=== PATIENT | female | born 1995 | race Caucasian/White ===

== ENCOUNTER 2018-08-06 19:26 | Emergency (ER) | payer SELFPAY ==
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
--- NOTE | 2018-08-06 20:18 | RADIOLOGY REPORT (SQ) ---
EXAM DESCRIPTION: HAND RIGHT 3 VIEWS COMPLETED DATE/TIME: 08/06/2018 7:50 pm REASON FOR STUDY: pain after punching a wall COMPARISON: None. EXAM PARAMETERS: NUMBER OF VIEWS: Three views. TECHNIQUE: AP, lateral and oblique radiographic images acquired of the right hand. LIMITATIONS: None. FINDINGS: MINERALIZATION: Normal. BONES: No acute fracture or dislocation. No worrisome bone lesions. JOINTS: No effusion. SOFT TISSUES: No significant soft tissue swelling. No radiopaque foreign body. OTHER: No other significant finding. IMPRESSION: NO FRACTURE. TECHNICAL DOCUMENTATION: JOB ID: [id number] [place]-72 2010 [employer]- All Rights Reserved Reading location - IP/workstation name: [facility]
[2018-08-06 20:30] VITALS: BP 116/75
== END 2018-08-06 20:30 | disposition home or self-care (01) ==
LOC: ER 19:26
DX: S60.511A Abrasion of right hand, initial encounter (principal); W22.09XA Striking against other stationary object, initial encounter
CPT/HCPCS: 99283

== ENCOUNTER 2018-08-29 21:45 | Emergency (ER) | payer SELFPAY ==
[2018-08-29 23:48] LABS: ABSOLUTE BASOPHILS # (AUTO) 0.1 10^3/uL (0.0-0.2); ABSOLUTE EOSINOPHILS # (AUTO) 0.3 10^3/uL (0.0-0.6); ABSOLUTE LYMPHOCYTES (AUTO) 2.4 10^3/uL (0.5-4.7); ABSOLUTE MONOCYTES (AUTO) 1.1 10^3/uL (0.1-1.4); ABSOLUTE NEUT (AUTO) 7.9 10^3/uL (1.7-8.2); BASOPHILS % (AUTO) 0.7 % (0-2); EOSINOPHILS % (AUTO) 2.4 % (0-6); HEMATOCRIT 41.4 % (36.0-47.0); HEMOGLOBIN 14.4 g/dL (12.0-15.5); LYMPHOCYTES % (AUTO) 20.6 % (13-45); MEAN CORPUSCULAR HEMOGLOBIN 33.9 pg (27.0-33.4); MEAN CORPUSCULAR HGB CONC 34.7 g/dL (32.0-36.0); MEAN CORPUSCULAR VOLUME 98 fl (80-97); MONOCYTES % (AUTO) 9.4 % (3-13); PLATELET COUNT 239 10^3/uL (150-450); RED BLOOD COUNT 4.25 10^6/uL (3.72-5.28); RED CELL DISTRIBUTION WIDTH 12.2 % (11.5-14.0); SEGMENTED NEUTROPHILS % (AUTO) 66.9 % (42-78); TOTAL CELLS COUNTED % (AUTO) 100 %; WHITE BLOOD COUNT 11.8 10^3/uL (4.0-10.5)
[2018-08-30 00:25] LABS: APPEARANCE,URINE SLIGHTLY-CLOUDY; BILIRUBIN,URINE NEGATIVE (NEGATIVE); COLOR,URINE YELLOW; GLUCOSE, URINE NEGATIVE (NEGATIVE); KETONES,URINE NEGATIVE (NEGATIVE); LEUKOCYTE ESTERASE,URINE NEGATIVE (NEGATIVE); NITRITE,URINE NEGATIVE (NEGATIVE); PROTEIN,URINE NEGATIVE (NEGATIVE)
[2018-08-30 01:09] LABS: ALANINE AMINOTRANSFERASE 21 U/L (9-52); ALBUMIN 4.2 g/dL (3.5-5.0); ALKALINE PHOSPHATASE 54 U/L (38-126); ANION GAP 12 (5-19); ASPARTATE AMINO TRANSFERASE 19 U/L (14-36); BILIRUBIN,DIRECT 0.2 mg/dL (0.0-0.4); BILIRUBIN,TOTAL 0.4 mg/dL (0.2-1.3); BLOOD UREA NITROGEN 8 mg/dL (7-20); CALCIUM 9.7 mg/dL (8.4-10.2); CARBON DIOXIDE 26 mmol/L (22-30); CHLORIDE 103 mmol/L (98-107); GLUCOSE 95 mg/dL (75-110); LIPASE 99.6 U/L (23-300); POTASSIUM 4.6 mmol/L (3.6-5.0); SODIUM 140.6 mmol/L (137-145); TOTAL PROTEIN 6.8 g/dL (6.3-8.2)
[2018-08-30] MEDS ORDERED: MORPHINE SULFATE 10 MG/ML INJ IV ONE (01:15)
[2018-08-30] MEDS ORDERED: ONDANSETRON HCL INJ/PF 4 MG/2 ML SDV IV ONE (01:15)
[2018-08-30] MEDS ORDERED: NORMAL SALINE 1000 ML 1,000 ML IV ONE (01:16)
--- NOTE | 2018-08-30 01:20 | ER Document Report ---
ED GI/ - General Chief Complaint: Abdominal Pain Stated Complaint: RIGHT ABDOMINAL PAINS Time Seen by Provider: 08/29/18 23:51 Notes: Patient is a 22-year-old female presenting to the emergency department complaining of right lower quadrant abdominal pain started at 1600 hrs. this afternoon. Patient denies any vomiting, diarrhea, fever, URI symptoms, vaginal discharge. Patient does admit to some dysuria. Past medical history: None Medications: None Allergies: Sulfa Surgical history: None Patient denies illicit drug use, EtOH use, admits to cigarette smoking. TRAVEL OUTSIDE OF THE [place] IN LAST 30 DAYS: No - Related Data Allergies/Adverse Reactions: sulfamethoxazole [From [facility]ra] Allergy (Verified 08/30/18 00:06) trimethoprim [From [facility]ra] Allergy (Verified 08/30/18 00:06) Past Medical History - General Information source: Patient - Social History Smoking Status: Current Every Day Smoker Chew tobacco use (# tins/day): No Frequency of alcohol use: None Drug Abuse: None Lives with: Family Family History: Reviewed & Not Pertinent Patient has suicidal ideation: No Patient has homicidal ideation: No Renal/ Medical History: Denies: Hx Peritoneal Dialysis Review of Systems - Review of Systems Constitutional: See HPI EENT: See HPI Cardiovascular: No symptoms reported Respiratory: See HPI Gastrointestinal: See HPI Genitourinary: See HPI Female Genitourinary: See HPI Musculoskeletal: No symptoms reported Skin: No symptoms reported Hematologic/Lymphatic: No symptoms reported Neurological/Psychological: No symptoms reported Physical Exam - Vital signs Vitals: Temp Pulse Resp BP Pulse Ox 98 F 103 H 20 120/90 H 100 08/29/18 21:45 08/29/18 21:45 08/29/18 21:45 08/29/18 21:45 08/29/18 21:45 - Notes Notes: GENERAL: Alert, interacts well. No acute distress. HEAD: Normocephalic, atraumatic. EYES: Pupils equal, round, and reactive to light. Extraocular movements intact. ENT: Oral mucosa moist, tongue midline. NECK: Full range of motion. Supple. Trachea midline. LUNGS: Clear to auscultation bilaterally, no wheezes, rales, or rhonchi. No respiratory distress. HEART: Regular rate and rhythm. No murmur ABDOMEN: Soft, Non-distended. Bowel sounds present in all 4 quadrants. Positive McBurney's point tenderness, no Khan sign, no left lower quadrant abdominal pain no left upper quadrant abdominal pain EXTREMITIES: Moves all 4 extremities spontaneously. No edema, normal radial and dorsalis pedis pulses bilaterally. No cyanosis. BACK: no cervical, thoracic, lumbar midline tenderness. No saddle anesthesia, normal distal neurovascular exam. No CVA tenderness NEUROLOGICAL: Alert and oriented x3. Normal speech. cranial nerves II through XII grossly intact PSYCH: Normal affect, normal mood. SKIN: Warm, dry, normal turgor. No rashes or lesions noted. Course - Re-evaluation Re-evalutation: 08/30/18 03:[address] results with patient at bedside. Normal appendicitis, possible constipation. Discussed use of MiraLAX twice a day for the next 2 weeks. Patient's urine shows no signs of infection, will send for culture due to dysuria. Close return precautions discussed. - Vital Signs Vital signs: Temp Pulse Resp BP Pulse Ox 98.2 F 103 H 13 109/62 96 08/30/18 01:58 08/29/18 21:45 08/30/18 03:00 08/30/18 02:00 08/30/18 03:00 - Laboratory Result Diagrams: 08/29/18 23:35 08/30/18 00:41 Laboratory results interpreted by me: 08/29/18 08/29/18 23:35 23:35 WBC 11.8 H MCV 98 H MCH 33.9 H Urine Urobilinogen 4.0 H Discharge - Discharge Clinical Impression: Constipation Qualifiers: Constipation type: unspecified constipation type Qualified Code(s): K59.00 - Constipation, unspecified Condition: Stable Disposition: HOME, SELF-CARE Instructions: Abdominal Pain ([facility]), Constipation ([facility]) Additional Instructions: As we discussed your CT shows no signs of appendicitis. It does show signs of constipation. You should take MiraLAX as prescribed. Also you can drink half the bottle of magnesium citrate in one sitting. Wait 24 hours and if you do not have a bowel movement you can finish the other half of the bottle. Please return to the emergency room for any other concerning symptoms Prescriptions: Polyethylene Glycol 3350 [Miralax] 1 cap PO BID #527 powder
--- NOTE | 2018-08-30 03:33 | RADIOLOGY REPORT (SQ) ---
CLINICAL HISTORY: RLQ pain COMPARISON: None. TECHNIQUE: CT ABDOMEN PELVIS WITH IV CONTRAST on 08/30/2018 12:00 AM [employer] This exam was performed according to our departmental dose-optimization program, which includes automated exposure control, adjustment of the mA and/or kV according to patient size and/or use of iterative reconstruction technique. FINDINGS: Lower lungs are clear. Abdomen: The liver is normal in appearance. There is no biliary dilatation. Gallbladder is decompressed. The pancreas and spleen are normal in appearance. The adrenal glands and kidneys are unremarkable. Abdominal aorta is normal in course and caliber without aneurysm. There is no free air. There is no retroperitoneal adenopathy. Pelvis: There is large amount of stool in the colon. Urinary bladder is unremarkable. There is small amount of free pelvic fluid. Uterus is normal in size. Appendix is normal. Skeleton: There are no acute osseous findings. No suspicious bony lesions. IMPRESSION: Possible constipation. Normal appendix.
[2018-08-30] MEDS ORDERED: MAGNESIUM CITRATE 296 ML BOTTLE PO ONE (03:44)
[2018-08-30 03:56] VITALS: BP 107/63
== END 2018-08-30 03:56 | disposition home or self-care (01) ==
LOC: ER 21:45
DX: K59.00 Constipation, unspecified (principal); R10.31 Right lower quadrant pain; F17.200 Nicotine dependence, unspecified, uncomplicated
CPT/HCPCS: 99284; 96361; 96374; 96375; 36415; 87086; 83690; 84703; 85025; 80053; 81001; 74177; J3490; J2270; J2405; J7030